=== PATIENT | female | born 1970 | race Two or more races ===

== ENCOUNTER 2018-01-05 14:00 | Outpatient (CLI) | payer OTHER | END 2018-01-05 14:17 | disposition home or self-care (01) | LOC: MAMO-SONO 14:00 | DX: N60.11 Diffuse cystic mastopathy of right breast (principal); N60.12 Diffuse cystic mastopathy of left breast; Z12.31 Encounter for screening mammogram for malignant neoplasm of breast; N83.01 Follicular cyst of right ovary; N83.02 Follicular cyst of left ovary ==

== ENCOUNTER 2018-01-10 14:02 | Outpatient (CLI) | payer OTHER | END 2018-01-10 16:01 | disposition home or self-care (01) | LOC: MAMO-SONO 14:02 | DX: N63.11 Unspecified lump in the right breast, upper outer quadrant (principal); N60.11 Diffuse cystic mastopathy of right breast ==

== ENCOUNTER 2019-01-05 13:36 | Outpatient (CLI) | payer OTHER | END 2019-01-05 14:07 | disposition home or self-care (01) | LOC: MAMO-SONO 13:36 | DX: N60.11 Diffuse cystic mastopathy of right breast (principal); N60.12 Diffuse cystic mastopathy of left breast; E03.8 Other specified hypothyroidism; Z12.31 Encounter for screening mammogram for malignant neoplasm of breast ==

== ENCOUNTER 2022-03-31 13:36 | Outpatient (CLI) | payer OTHER | END 2022-03-31 13:52 | disposition home or self-care (01) | LOC: MAMO-SONO 13:36 | PROVIDERS: ATTEND Obstetrics & Gynecology | DX: N60.11 Diffuse cystic mastopathy of right breast (principal); N60.12 Diffuse cystic mastopathy of left breast ==

== ENCOUNTER 2024-06-06 10:31 | Outpatient (CLI) | payer OTHER | END 2024-06-06 10:42 | disposition home or self-care (01) | LOC: MAMO-SONO 10:31 | PROVIDERS: ATTEND Obstetrics & Gynecology | DX: N60.11 Diffuse cystic mastopathy of right breast (principal); N60.12 Diffuse cystic mastopathy of left breast; Z12.31 Encounter for screening mammogram for malignant neoplasm of breast ==